=== PATIENT | female | born 1975 | race African-American/Black ===

== ENCOUNTER 2023-04-15 15:12 | Emergency (ER) | payer MEDICAID ==
[~2023-04-15] VITALS: Ht 167.6 cm; Wt 114.0 kg
[2023-04-15 15:23] VITALS: BP 164/90; PULSE 92; RESP 16; TEMP 98.2; O2SAT 98
[2023-04-15] MEDS ORDERED: KETOROLAC 15MG/ML VIAL IM ONE (20:15)
[2023-04-15] MEDS ORDERED: LIDO700A15 TP (20:24)
[2023-04-15] MEDS ORDERED: NAPR-1176 MT (20:24)
== END 2023-04-15 20:36 | disposition home or self-care (01) ==
LOC: ER 15:12
DX: M25.552 Pain in left hip (principal); I11.0 Hypertensive heart disease with heart failure
CPT/HCPCS: 73502; 99283

== ENCOUNTER 2023-08-14 14:32 | Emergency (ER) | payer MEDICAID ==
[~2023-08-14] VITALS: Ht 157.5 cm; Wt 106.0 kg
[~2023-08-14 14:32] MED LIST: LIDO700A15 TP; NAPR-1176 MT
[2023-08-14 14:55] VITALS: BP 152/87; PULSE 84; RESP 18; TEMP 98.5; O2SAT 98
[2023-08-14] MEDS: KETOROLAC 15MG/ML VIAL IM ONE (18:06)
[2023-08-14] MEDS: IBUPROFEN 400MG TABLET PO ONE (18:13)
[2023-08-14] MEDS ORDERED: NAPR-681 MT (19:28)
== END 2023-08-14 20:56 | disposition home or self-care (01) ==
LOC: ER 14:52
DX: M17.12 Unilateral primary osteoarthritis, left knee (principal); I10 Essential (primary) hypertension; Z98.890 Other specified postprocedural states
CPT/HCPCS: 73562; 96372; 99283; J1885; Z7610

== ENCOUNTER 2024-02-16 11:11 | Emergency (ER) | payer MEDICAID ==
[~2024-02-16] VITALS: Ht 208.3 cm; Wt 77.0 kg
[~2024-02-16 11:11] MED LIST changes: +NAPR-681 MT
[2024-02-16 11:21] VITALS: O2SAT 100
[2024-02-16] MEDS ORDERED: TOPUD PO (13:14)
[2024-02-16 13:25] VITALS: BP 135/88
[2024-02-16] MEDS: IBUPROFEN 600MG TABLET PO NR (13:25)
[2024-02-16] MEDS: PANTOPRAZOLE 40MG DR TABLET PO NR (13:35)
[2024-02-16 13:38] VITALS: PULSE 85; RESP 16; TEMP 36.50292; O2SAT 100
[2024-02-16] MEDS ORDERED: IBUPROFEN 600MG TABLET PO NR (13:45)
[2024-02-16] MEDS ORDERED: PANTOPRAZOLE 40MG DR TABLET PO NR (13:45)
== END 2024-02-16 13:37 | disposition home or self-care (01) ==
LOC: ER 11:20
DX: S93.401A Sprain of unspecified ligament of right ankle, initial encounter (principal); I10 Essential (primary) hypertension; Z98.891 History of uterine scar from previous surgery; X50.1XXA Overexertion from prolonged static or awkward postures, initial encounter; Y93.02 Activity, running; Y92.89 Other specified places as the place of occurrence of the external cause; Y99.8 Other external cause status
CPT/HCPCS: 73610; 73630; 99283; 99284

== ENCOUNTER 2024-08-04 10:15 | Emergency (ER) | payer MEDICAID ==
[~2024-08-04] VITALS: Ht 157.5 cm; Wt 103.0 kg
[~2024-08-04 10:15] MED LIST changes: +LIDO-53 TP; -LIDO700A15 TP; +TOPUD PO
[2024-08-04 10:18] VITALS: RESP 16; TEMP 36.9; O2SAT 99
[2024-08-04 11:49] LABS: CLARITY URINE CLOUDY (CLEAR); COLOR URINE YELLOW (YELLOW); GLUCOSE URINE NEGATIVE (NEGATIVE); KETONES URINE NEGATIVE (NEGATIVE); LEUKOCYTE ESTERASE URINE 1+ (NEGATIVE); NITRITE URINE NEGATIVE (NEGATIVE); OCCULT BLOOD URINE NEGATIVE (NEGATIVE); PH URINE 7.5 (4.5-8.0); PROTEIN URINE NEGATIVE (NEGATIVE); SPECIFIC GRAVITY URINE 1.019 (1.005-1.030); UROBILINOGEN URINE 0.2 E.U./dL (0.2-1.0)
[2024-08-04] MEDS: ACETAMINOPHEN 325MG TABLET PO STA (11:56)
[2024-08-04] MEDS: KETOROLAC 30MG/ML VIAL IM STA (11:57)
[2024-08-04 12:08] LABS: BASOPHILS % 0.5 % (0.0-2.0); EOSINOPHILS % 1.8 % (0.0-5.0); HEMATOCRIT. 39.3 % (36.0-48.0); HEMOGLOBIN. 13.2 g/dL (12.0-16.0); LYMPHOCYTES % 14.5 % (20.0-50.0); MEAN CORPUSCULAR HEMOGLOBIN 29.8 pg (28.0-32.0); MEAN CORPUSCULAR HGB CONC 33.6 g/dL (31.0-37.0); MEAN CORPUSCULAR VOLUME 88.7 fL (81.0-99.0); MEAN PLATELET VOLUME 8.2 fl (7.4-10.4); MONOCYTES % 5.5 % (2.0-8.0); NEUTROPHILS % 77.7 % (40.0-76.0); PLATELET 262 x1000/uL (130-400); RED BLOOD CELL COUNT 4.43 mill/uL (4.2-5.4); RED CELL DISTRIBUTION WIDTH 14.4 % (11.6-14.6); WHITE BLOOD COUNT 10.5 x1000/uL (4.5-11.0)
[2024-08-04 12:18] LABS: SQUAMOUS EPITHELIAL CELL URINE 3+ /lpf (RARE/1+)
[2024-08-04 12:18] LABS: CHLORIDE 105 mEq/L (98-107); POTASSIUM 3.7 mEq/L (3.5-5.1); SODIUM 139 mEq/L (136-145)
[2024-08-04 12:19] LABS: CALCIUM 9.1 mg/dL (8.7-10.4); CARBON DIOXIDE 31 mEq/L (21-32)
[2024-08-04 12:21] LABS: RBC URINE 0-2 /hpf (0-2)
[2024-08-04 12:22] LABS: BACTERIA URINE 4+
[2024-08-04 12:24] LABS: CREATININE 0.8 mg/dL (0.6-1.0); GLUCOSE 99 mg/dL (70-105); UREA NITROGEN BLOOD 8 mg/dL (9-23)
[2024-08-04] MEDS ORDERED: IBUP-2029 MT (13:24)
[2024-08-04] MEDS ORDERED: TOPUD PO (13:24)
[2024-08-04] MEDS ORDERED: SULF1TAB48 MT (13:24)
[2024-08-04] MEDS: ACETAMINOPHEN 325MG TABLET PO ONE (13:25)
[2024-08-04 13:33] VITALS: BP 149/88; PULSE 77; O2SAT 99
== END 2024-08-04 13:34 | disposition home or self-care (01) ==
LOC: ER 10:15
DX: S33.140A Subluxation of L4/L5 lumbar vertebra, initial encounter (principal); N39.0 Urinary tract infection, site not specified; I10 Essential (primary) hypertension; Z98.890 Other specified postprocedural states; Z79.899 Other long term (current) drug therapy; X58.XXXA Exposure to other specified factors, initial encounter; Y93.89 Activity, other specified; Y92.89 Other specified places as the place of occurrence of the external cause; Y99.8 Other external cause status
CPT/HCPCS: 99284; 80048; 81003; 81025; 85025; 87086; 36415; 72100; 72170; 96372; J1885